=== PATIENT | male | born 1995 | race Caucasian/White ===

== ENCOUNTER 2022-08-12 07:29 | Emergency (ER) | payer SELFPAY ==
[~2022-08-12] VITALS: Ht 172.7 cm; Wt 97.7 kg
[~2022-08-12 07:29] MED LIST: BENADRYL50 MG PO; FLOMAX 0.40.4 MG/CAP PO; NO HOME MEDICATIONS; PERCOCET 325 MG1 TA2 PO; PREDNISONE1 MG PO
[2022-08-12 07:52] VITALS: BP 142/98; TEMP 97.7
[2022-08-12] MEDS ORDERED: ADDERALL20 MG PO (08:02)
[2022-08-12 08:41] VITALS: PULSE 64
== END 2022-08-12 08:42 | disposition home or self-care (01) ==
LOC: COL.ER 07:29
DX: B34.9 Viral infection, unspecified (principal); Z20.822 Contact with and (suspected) exposure to COVID-19; Z28.310 Unvaccinated for COVID-19